=== PATIENT | female | born 1950 | race Caucasian/White ===

== ENCOUNTER 2017-06-12 15:58 | Outpatient (CLI) | payer MEDICARE, OTHER | END 2017-06-12 15:59 | disposition home or self-care (01) | LOC: BICMAMMO 15:58 | PROVIDERS: ATTEND Obstetrics & Gynecology | DX: Z12.31 Encounter for screening mammogram for malignant neoplasm of breast (principal); N64.89 Other specified disorders of breast | CPT/HCPCS: 77063; G0202; 77067 ==

== ENCOUNTER 2018-06-13 08:00 | Outpatient (CLI) | payer MEDICARE, OTHER ==
--- NOTE | 2018-06-13 09:11 | RAD ---
EXAM: CHEST TWO VIEWS: History: 68-year-old female with history of wheezing. FINDINGS: Heart size is within normal limits. No confluent pneumonia, overt edema, or pleural effusion. Heart s ize is within normal limits. The lungs are clear. IMPRESSION: No significant acute intrathoracic disease. Minimal increased markings bilaterally, evidence for some chronic change. Old granulomatous disease. Mild atherosclerosis of the aorta. POS: [facility]
--- NOTE | 2018-06-13 09:49 | BD ---
BONE DENSITOMETRY USING DEXA: HISTORY: Post menopausal screening for osteoporosis. FINDINGS LUMBAR SPINE BMD (g/cm2) T-SCORE Z-SCORE L1: 0.850 -1.3 0.4 L2: 0.921 -1.0 0.9 L3: 0.902 -1.7 0.3 L4: 0.816 -2.2 -0.2 TOTAL: 0.870 -1.6 0.3 BMD (g/cm2) T-SCORE Z-SCORE NECK: 0.659 -1.7 -0.1 TOTAL: 0.790 -1.2 0.1 IMPRESSION: Osteopenia. POS: OFF
== END 2018-06-13 08:01 | disposition home or self-care (01) ==
LOC: BICMAMMO 08:00
PROVIDERS: ATTEND Family Medicine
DX: Z12.31 Encounter for screening mammogram for malignant neoplasm of breast (principal); M85.80 Other specified disorders of bone density and structure, unspecified site; R06.2 Wheezing; I70.0 Atherosclerosis of aorta; D71 Functional disorders of polymorphonuclear neutrophils; Z80.3 Family history of malignant neoplasm of breast
CPT/HCPCS: 71046; 77063; 77067; 77080

== ENCOUNTER 2019-03-28 20:04 | Emergency (ER) | payer MEDICARE, OTHER | END 2019-03-28 21:10 | disposition home or self-care (01) | LOC: SCSER 20:04 | DX: H00.013 Hordeolum externum right eye, unspecified eyelid (principal); E78.5 Hyperlipidemia, unspecified; I10 Essential (primary) hypertension; Z79.899 Other long term (current) drug therapy | CPT/HCPCS: 99283 ==

== ENCOUNTER 2019-06-21 09:33 | Outpatient (CLI) | payer MEDICARE, OTHER ==
--- NOTE | 2019-06-21 10:21 | MMO ---
Bilateral MAMMO Bilat Screen [facility]. CLINICAL HISTORY: Patient is 69 years old and is seen for screening. The patient has the following family history of breast cancer: paternal aunt. The patient has no personal history of cancer. VIEWS: The views performed were: bilateral craniocaudal; bilateral craniocaudal with tomosynthesis; and bilateral mediolateral oblique with tomosynthesis. FILMS COMPARED: The present examination has been compared to prior imaging studies performed at [facility] on 02/23/2015, 01/29/2016, 06/12/2017 and 06/13/2018. This study has been interpreted with the assistance of computer-aided detection. MAMMOGRAM FINDINGS: The breasts are almost entirely fat. There are no suspicious masses, suspicious calcifications, or new areas of architectural distortion. IMPRESSION: THERE IS NO MAMMOGRAPHIC EVIDENCE OF MALIGNANCY. A ROUTINE FOLLOW-UP MAMMOGRAM IN 1 YEAR IS RECOMMENDED. THE RESULTS OF THIS EXAM WERE SENT TO THE PATIENT. ACR BI-RADS Category 1 - Negative MAMMOGRAPHY NOTE: 1. A negative mammogram report should not delay a biopsy if a dominant of clinically suspicious mass is present. 2. Approximately 10% to 15% of breast cancers are not detected by mammography. 3. Adenosis and dense breasts may obscure an underlying neoplasm. Reported by: KERMIT CASE MD Electonically Signed: [id number]
--- NOTE | 2019-06-21 10:41 | BD ---
EXAM: DEXA bone density examination HISTORY: 69-year-old postmenopausal female for screening COMPARISON: 06/13/2018 FINDINGS: L1--bone mineral density 0.814 g/sq cm; T score -1.6 L2--bone mineral density 0.913 g/sq cm; T score -1.0 L3--bone mineral density 0.864 g/sq cm; T score -2.0 L4--bone mineral density 0.868 g/sq cm; T score -1.8 Total L1-L4--bone mineral density 0.866 g/sq cm; T score -1.6 Left femoral neck--bone mineral density0.614; T score -2.1 Total proximal left femur--bone mineral density 0.802; T score -1.1 IMPRESSION: Osteopenia This patient has a 10 year WHO fracture risk of a major osteoporotic fracture of 17% and of a hip fracture of 2.5%.
== END 2019-06-21 09:34 | disposition home or self-care (01) ==
LOC: BICMAMMO 09:33
PROVIDERS: ATTEND Family Medicine
DX: Z12.31 Encounter for screening mammogram for malignant neoplasm of breast (principal); M85.80 Other specified disorders of bone density and structure, unspecified site; Z80.3 Family history of malignant neoplasm of breast
CPT/HCPCS: 77063; 77067; 77080

== ENCOUNTER 2020-07-03 08:42 | Outpatient (CLI) | payer MEDICARE, OTHER ==
--- NOTE | 2020-07-03 09:19 | MMO ---
Bilateral MAMMO Bilat Screen [facility]. CLINICAL HISTORY: Patient is 70 years old and is seen for screening. The patient has the following family history of breast cancer: paternal aunt. The patient has no personal history of cancer. VIEWS: The views performed were: bilateral craniocaudal with tomosynthesis and bilateral mediolateral oblique with tomosynthesis. FILMS COMPARED: The present examination has been compared to prior imaging studies performed at [facility] on 01/29/2016, 06/12/2017, 06/13/2018 and 06/21/2019. This study has been interpreted with the assistance of computer-aided detection. MAMMOGRAM FINDINGS: The breasts are almost entirely fat. There are no suspicious masses, suspicious calcifications, or new areas of architectural distortion. IMPRESSION: THERE IS NO MAMMOGRAPHIC EVIDENCE OF MALIGNANCY. A ROUTINE FOLLOW-UP MAMMOGRAM IN 1 YEAR IS RECOMMENDED. THE RESULTS OF THIS EXAM WERE SENT TO THE PATIENT. ACR BI-RADS Category 1 - Negative MAMMOGRAPHY NOTE: 1. A negative mammogram report should not delay a biopsy if a dominant of clinically suspicious mass is present. 2. Approximately 10% to 15% of breast cancers are not detected by mammography. 3. Adenosis and dense breasts may obscure an underlying neoplasm. Reported by: KERMIT CASE MD Electonically Signed: [id number]
== END 2020-07-03 08:43 | disposition home or self-care (01) ==
LOC: BICMAMMO 08:42
PROVIDERS: ATTEND Family Medicine
DX: Z12.31 Encounter for screening mammogram for malignant neoplasm of breast (principal); Z80.3 Family history of malignant neoplasm of breast
CPT/HCPCS: 77063; 77067

== ENCOUNTER 2021-07-16 07:52 | Outpatient (CLI) | payer MEDICARE, OTHER | END 2021-07-16 07:53 | disposition home or self-care (01) | LOC: BICMAMMO 07:52 | PROVIDERS: ATTEND Family Medicine | DX: Z12.31 Encounter for screening mammogram for malignant neoplasm of breast (principal); M85.89 Other specified disorders of bone density and structure, multiple sites; Z80.3 Family history of malignant neoplasm of breast | CPT/HCPCS: 77063; 77067; 77080 ==

== ENCOUNTER 2022-08-23 08:43 | Outpatient (CLI) | payer MEDICARE, OTHER | END 2022-08-23 08:44 | disposition home or self-care (01) | LOC: BICMAMMO 08:43 | PROVIDERS: ATTEND Family Medicine | DX: Z12.31 Encounter for screening mammogram for malignant neoplasm of breast (principal); Z80.3 Family history of malignant neoplasm of breast | CPT/HCPCS: 77063; 77067 ==

== ENCOUNTER 2023-08-30 09:03 | Outpatient (CLI) | payer MEDICARE, OTHER | END 2023-08-30 09:04 | disposition home or self-care (01) | LOC: BICMAMMO 09:03 | PROVIDERS: ATTEND Family Medicine | DX: Z12.31 Encounter for screening mammogram for malignant neoplasm of breast (principal); Z80.3 Family history of malignant neoplasm of breast | CPT/HCPCS: 77063; 77067 ==